=== PATIENT | female | born 1975 ===

== ENCOUNTER 2017-07-28 17:39 | Emergency (ER) | payer MEDICAID ==
[2017-07-28 17:39] VITALS: BMI 38.7
[2017-07-28 17:47] VITALS: TEMP 98.2
--- NOTE | 2017-07-28 18:19 | ED PDOC ---
Arrival/HPI - History of Present Illness Time/Duration: < month Symptom Onset: Sudden Symptom Course: Worsening Quality: Aching, Stabbing, Cramping Severity Level: 9 Activities at Onset: Rest, Light Context: Home - General Chief Complaint: Back Pain Time Seen by Provider: 07/28/17 17:44 - History of Present Illness Narrative History of Present Illness (Text): 07/28/17 18:34 Mrs. Robertson is a 41 year old female with a past medical history of epilepsy and DM2 who presented to the [facility] [place] Emergency department with a chief complaint of back pain. She states that she has had this problem for one month but that it has gotten worse since Tuesday, when she fell after having a seizure. She reports that she saw her PMD two weeks ago and he prescribed her Baclofen, which has provided her minimal relief. She describes the pain as a sharp, aching pain going from her mid back to gluteal region. She states that the pain is constant with no alleviating/aggravating factors reported. She denies fever, chills, headache, changes in her vision, chest pain, palpitations, shortness of breath, cough, abdominal pain, N/V, diarrhea, constipation, burning with urination, fecal/urinary incontinence, rash, or any numbness/tingling/weakness of any of her extremities. (ANDREINA AVALOS) Past Medical History - Provider Review Nursing Documentation Reviewed: Yes - Travel History Have you recently traveled outside [place] w/in the past 3 mons?: No - Past History Past History: No Previous - Infectious Disease Hx of Infectious Diseases: None - Cardiac Hx Cardiac Disorders: Yes Hx Hypertension: Yes - Pulmonary Hx Respiratory Disorders: No - Neurological Hx Neurological Disorder: Yes Hx Seizures: Yes (EPILEPSY) - HEENT Hx HEENT Disorder: No - Renal Hx Renal Disorder: No - Endocrine/Metabolic Hx Endocrine Disorders: Yes Hx Diabetes Mellitus Type 2: Yes - Hematological/Oncological Hx Cirrhosis: No - Integumentary Hx Dermatological Disorder: No - Musculoskeletal/Rheumatological Hx Musculoskeletal Disorders: Yes Hx Back Pain: Yes - Gastrointestinal Hx Gastrointestinal Disorders: No - Genitourinary/Gynecological Hx Genitourinary Disorders: No - Psychiatric Hx Psychophysiologic Disorder: No Hx Depression: No Hx Emotional Abuse: No Hx Physical Abuse: No Hx Substance Use: No - Surgical History Other/Comment: implanted device to stop seizure - Anesthesia Hx Anesthesia: Yes Hx Anesthesia Reactions: No - Suicidal Assessment Feels Threatened In Home Enviroment: No Family/Social History - Physician Review Nursing Documentation Reviewed: Yes Family/Social History: Unknown Family HX Smoking Status: Former Smoker Hx Alcohol Use: No Hx Substance Use: No Hx Substance Use Treatment: No Allergies/Home Meds Allergies/Adverse Reactions: Allergies No Known Allergies Allergy (Verified 07/28/17 17:41) Home Medications: Home Meds Medication Instructions Recorded Confirmed Lacosamide [Vimpat] 200 mg PO BID 07/03/14 07/28/17 Baclofen [Lioresal] 10 mg PO BID 07/28/17 07/28/17 Glyburide/Metformin HCl 1,000 mg PO BID 07/28/17 07/28/17 [Glyburide-Metformin 2.5-500 mg] OXcarbazepine [Trileptal] 600 mg PO BID 07/28/17 07/28/17 Review of Systems - Physician Review All systems were reviewed & negative as marked: Yes - Review of Systems Constitutional: Normal. absent: Fevers, Night Sweats Eyes: Normal. absent: Vision Changes ENT: Normal. absent: Sore Throat Respiratory: Normal. absent: SOB, Cough Cardiovascular: Normal. absent: Chest Pain, Palpitations Gastrointestinal: Normal, Other (Denies fecal incontinence). absent: Abdominal Pain, Constipation, Diarrhea, Nausea, Vomiting Genitourinary Female: Normal, Other (Denies urinary incontinence). absent: Dysuria Musculoskeletal: Back Pain (Mid back to sacrum and gluteal region). absent: Normal, Neck Pain, Joint Swelling Skin: Normal. absent: Rash Neurological: Normal, Seizure (Endorses seizure on Tuesday). absent: Headache , Dizziness Psychiatric: Normal Physical Exam Vital Signs Reviewed: Yes Temperature: Afebrile Blood Pressure: Normal Pulse: Regular Respiratory Rate: Normal Appearance: Positive for: Well-Appearing, Non-Toxic, Uncomfortable Pain Distress: Moderate Mental Status: Positive for: Alert and Oriented X 3 - Systems Exam Head: Present: Atraumatic, Normocephalic Pupils: Present: PERRL Extroacular Muscles: Present: EOMI Conjunctiva: Present: Normal Mouth: Present: Moist Mucous Membranes Neck: Present: Normal Range of Motion, Trachea Midline. No: Meningeal Signs, MIDLINE TENDERNESS, JVD, Lymphadenopathy Respiratory/Chest: Present: Clear to Auscultation, Good Air Exchange. No: Respiratory Distress, Accessory Muscle Use, Wheezes, Decreased Breath Sounds, Rales, Retracting, Rhonchi, Tachypneic, Tender to Palpation Cardiovascular: Present: Regular Rate and Rhythm, Normal S1, S2, Peripheal Pulses Present. No: Murmurs, Irregular Rhythm, Tachycardic, Bradycardic Abdomen: Present: Normal Bowel Sounds. No: Tenderness, Distention, Peritoneal Signs, Rebound, Guarding Back: Present: Midline Tenderness (T10-S1), Paraspinal Tenderness (T10 to S1), Pain with Leg Raise (On right side). No: Normal Inspection, CVA Tenderness Upper Extremity: Present: Normal Inspection. No: Cyanosis, Edema Lower Extremity: Present: Normal Inspection. No: Edema Neurological: Present: GCS=15, CN II-XII Intact, Speech Normal Skin: Present: Warm, Dry, Normal Color. No: Rashes Psychiatric: Present: Alert, Oriented x 3, Normal Insight, Normal Concentration Vital Signs Temp Pulse Resp BP Pulse Ox 07/28/17 21:00 80 17 130/78 98 07/28/17 19:30 88 17 132/88 98 07/28/17 17:45 98.2 F 92 H 18 134/89 97 Medical Decision Making - RAD Interpretation Powder Room Attendant: Radiologist ED Course and Treatment: 07/28/17 18:45 Impression: 41 year old female with a past medical history of epilepsy and DM2 who presented to the [facility] [place] Emergency department with a chief complaint of back pain Plan: -Tylenol 975mg PO, Toradol 60mg IM, Lidocaine TD, Flexeril 10mg PO, Hot/Cold pack PRN -Thoracic and Lumbar X-Rays -Reassess and disposition Prior Visits: All results and reports from previous visits reviewed. 07/2016: Patient was seen and evaluated for seizures (ANDREINA AVALOS) Patient Seen With Resident: In agreement with resident note which contains more details about the patient. Patient was seen and evaluated with resident. Came up with plan and treatment together. low back pain s/p seizure on tuesday (pt reports already eval for seizure). neuro intact. steady gait. pain improved in er. no saddle anestheisa. stable for outpt dc 07/29/17 11:14 (Ze Thakkar) - RAD Interpretation Radiology Orders: 07/28/17 18:31 DORSAL (THORACIC) SPINE [RAD] Stat 07/28/17 18:37 LS SPINE AP/LAT [RAD] Stat - Medication Orders Current Medication Orders: Discontinued Medications Acetaminophen (Tylenol 325mg Tab) 975 mg PO STAT STA Stop: 07/28/17 18:44 Last Admin: 07/28/17 19:31 Dose: 975 mg MAR Pain/Vitals Document 07/28/17 19:31 SF (Rec: 07/28/17 19:31 [id number] Pain Reassessment Is This A Pain ReAssessment? Yes Sleep Is patient sleeping during reassessment? No Presence of Pain Presence of Pain Yes Cyclobenzaprine HCl (Flexeril) 10 mg PO STAT STA Stop: 07/28/17 18:44 Last Admin: 07/28/17 19:31 Dose: 10 mg Ketorolac Tromethamine (Toradol) 60 mg IM STAT STA Stop: 07/28/17 18:44 Last Admin: 07/28/17 19:31 Dose: 60 mg MAR Pain Assessment Document 07/28/17 19:31 SF (Rec: 07/28/17 19:32 SF [facility] [id number]) Pain Reassessment Is this a pain reassessment? Yes Sleep Is patient sleeping during reassessment? No Presence of Pain Presence of Pain Yes IM Administration Charges Document 07/28/17 19:31 SF (Rec: 07/28/17 19:32 SF [facility] [id number] Injection Site MAR Injection Site Left Deltoid Charges for Administration # of IM Administrations 1 Lidocaine (Lidoderm) 1 ea TD STAT STA Stop: 07/28/17 18:44 Last Admin: 07/28/17 19:30 Dose: 1 ea MAR Transdermal Patch Site Document 07/28/17 19:30 SF (Rec: 07/28/17 19:30 SF [facility] [email or web address]) Transdermal Patch Site Transdermal Patch Site Right Lower Back Disposition/Present on Arrival - Present on Arrival Any Indicators Present on Arrival: No History of DVT/PE: No History of Uncontrolled Diabetes: No Urinary Catheter: No History of Decub. Ulcer: No History Surgical Site Infection Following: None - Disposition Have Diagnosis and Disposition been Completed?: Yes Disposition Time: 20:46 - Disposition Diagnosis: Back pain Disposition: HOME/ ROUTINE Condition: IMPROVED Discharge Instructions (ExitCare): Back Pain (ED) Additional Instructions: Ms. Robertson, thank you for letting us take care of you today. Your provider was Dr. Thakkar. You were treated for back pain. The emergency medical care you received today was directed at your acute symptoms. If you were prescribed any medication, please fill it and take as directed. It may take several days for your symptoms to resolve. Return to the Emergency Department if your symptoms worsen, do not improve, or if you have any other problems. Please contact your doctor or call one of the physicians/clinics you have been referred to that are listed on the Patient Visit Information form that is included in your discharge packet. Bring any paperwork you were given at discharge with you along with any medications you are taking to your follow up visit. Our treatment cannot replace ongoing medical care by a primary care provider (PCP) outside of the emergency department. PLEASE FOLLOW UP WITH YOUR PRIMARY CARE DOCTOR WITHIN ONE WEEK Thank you for allowing the [facility] team to be part of your care today. If you had an X-Ray or CT scan: A Radiologist will review the ED reading if any change in treatment is needed we will contact you. Prescriptions: Cyclobenzaprine [Cyclobenzaprine HCl] 10 mg PO TID PRN #14 tab PRN Reason: Pain, Moderate (4-7) Lidocaine 5% [Lidoderm] 1 ea TD PRN PRN #7 patch PRN Reason: Pain, Severe (8-10) Naproxen 500 mg PO BID #20 tab Referrals: Avi Farley MD [Primary Care Provider] - Follow up with primary Forms: [employer] (Azeri)
[2017-07-28] MEDS ORDERED: Lidocaine 5% Patch TD STA (18:43)
[2017-07-28 20:28] VITALS: RESP 17; O2SAT 98
[2017-07-28 21:02] VITALS: BP 130/78; PULSE 80
--- NOTE | 2017-07-29 09:07 | RAD ---
HISTORY: Fall/ back pain COMPARISON: No prior. FINDINGS: BONES: Alignment maintained. No fracture. DISC SPACES: Normal. SOFT TISSUES: Normal. OTHER FINDINGS: None. IMPRESSION: Normal radiographs of the thoracic spine.
--- NOTE | 2017-07-29 09:08 | RAD ---
PROCEDURE: Radiographs of the Lumbar Spine. HISTORY: Fall/LBP COMPARISON: No prior. FINDINGS: BONES: Normal alignment. No listhesis. No fracture. DISC SPACES: Unremarkable. OTHER FINDINGS: None. IMPRESSION: Unremarkable radiographs of the lumbar spine.
== END 2017-07-28 21:02 | disposition home or self-care (01) ==
LOC: ED 17:39
DX: M54.9 Dorsalgia, unspecified (principal); I10 Essential (primary) hypertension; E11.9 Type 2 diabetes mellitus without complications; Z87.891 Personal history of nicotine dependence
CPT/HCPCS: 72070; 72100; 96372; 99285; J1885